=== PATIENT | female | born 1995 | race Caucasian/White ===

== ENCOUNTER 2017-03-17 14:30 | Emergency (ER) | payer MEDICAID ==
[2017-03-17 15:44] LABS: BILIRUBIN,URINE NEGATIVE (NEGATIVE); UA w/ MICROSCOPIC CHARGE YES
[2017-03-17 15:45] LABS: HCG UR QUAL POSITIVE
[2017-03-17 15:57] LABS: UR CULTURE IF IND INDICATED; WBC,URINE 0-3 /HPF (0-5)
--- NOTE | 2017-03-17 16:19 | ED Physician Documentation ---
PD HPI FEMALE - Stated complaint Stated Complaint: CRAMPING/NAUSEA (1 WEEK PREGENANT) - Chief complaint Chief Complaint: Abd Pain - History obtained from History obtained from: Patient - History of Present Illness Timing - onset: How many days ago (3) Timing - duration: Days (3) Timing - details: Gradual onset, Still present Contributing factors: OB-BEET FLUMER History: G (3), P (1), Miscarriage(s) (1) Similar symptoms before: Diagnosis (miscarriage) Recently seen: Not recently seen - Additional information Additional information: 22 y/o female with LMP 4-13-17 has had her symptoms of resolve. She is no longer nauseated and her breast tenderness has resolved. This is similar to what happened to her with a miscarriage previously. She has had a term . She has not had imaging with this . [place] Review of Systems Constitutional: denies: Fever, Chills, Myalgias, Fatigue Eyes: denies: Decreased vision Ears: denies: Ear pain Nose: denies: Congestion Throat: denies: Sore throat Cardiac: denies: Chest pain / pressure, Palpitations Respiratory: denies: Dyspnea, Cough GI: denies: Abdominal Pain, Nausea, Vomiting : denies: Dysuria, Frequency Skin: denies: Rash Musculoskeletal: denies: Neck pain, Back pain, Extremity pain Neurologic: denies: Generalized weakness, Focal weakness, Numbness PD PAST MEDICAL HISTORY - Past Medical History Past Medical History: No - Past Surgical History Past Surgical History: No - Allergies Allergies/Adverse Reactions: Allergies Allergy/AdvReac Type Severity Reaction Status Date / Time No Known Drug Allergies Allergy Verified 03/17/17 14:43 - Social History Does the pt smoke?: No Smoking Status: Never smoker Does the pt drink ETOH?: No Does the pt have substance abuse?: No - Immunizations Immunizations are current?: Yes - POLST Patient has POLST: No PD ED PE NORMAL - Vitals Vital signs reviewed: Yes (normal ) - General General: Alert and oriented X 3, No acute distress, Well developed/nourished - HEENT HEENT: Atraumatic, PERRL - Respiratory Respiratory: No respiratory distress - Abdomen Abdomen: Soft, Non tender - Back Back: No CVA TTP, No spinal TTP - Derm Derm: Normal color, Warm and dry, No rash - Extremities Extremities: No deformity, No edema - Neuro Neuro: Alert and oriented X 3, No motor deficit, No sensory deficit, Normal speech - Psych Psych: Normal mood, Normal affect Results - Vitals Vitals: Vital Signs - 24 hr 03/17/17 03/17/17 14:38 16:21 Temperature 36.9 C Heart Rate 100 89 Respiratory 16 18 Rate Blood Pressure 92/62 95/65 O2 Saturation 100 97 Oxygen O2 Source Room air - Labs Labs: Laboratory Tests 03/17/17 03/17/17 03/17/17 15:35 15:35 16:26 HCG, Quant [id number] Urine Color YELLOW Urine Clarity CLEAR Urine pH 7.0 Ur Specific [place] <=1.005 <=1.005 Urine Protein NEGATIVE Urine Glucose (UA) NEGATIVE Urine Ketones NEGATIVE Urine Occult Blood NEGATIVE Urine Nitrite NEGATIVE Urine Bilirubin NEGATIVE Urine Urobilinogen 0.2 (NORMAL) Ur Leukocyte Esterase TRACE H Urine RBC 0-5 Urine WBC 0-3 Ur Squamous Epith Cells FEW Squamous Urine Bacteria Few Ur Microscopic Review INDICATED Urine Culture Comments INDICATED Urine HCG, Qual POSITIVE Procedures - Bedside sono Bedside sono by EMP: with the use of bedside ultrasound the pelvis is imaged and there is a 6 week gestational sac without a pole present. PD MEDICAL DECISION MAKING - ED course Complexity details: reviewed results, re-evaluated patient, considered differential, d/w patient ED course: 22 y/o female feels her is failing. She may be right and we have drawn her quant today and I have recommended she have a second quant done in 2 days with results to [facility]. Departure - Departure Disposition: 01 Home, Self Care Clinical Impression: Threatened Condition: Stable Instructions: ED Miscarriage Poss Follow-Up: Chelly Santa DO [Provider Admit Priv/Credential] - Comments: Today there is a gestational sac that is consistent with a 6 week without a visible pole. Follow up for another blood test and results will go to Dr. Santa. Today your hcG number is [phone].
[2017-03-17 16:21] VITALS: BP 95/65
== END 2017-03-17 17:32 | disposition home or self-care (01) ==
LOC: ED 14:30
DX: O20.0 Threatened abortion (principal); Z3A.11 11 weeks gestation of pregnancy
CPT/HCPCS: 36415; 81001; 81003; 81025; 84702; 87086; 99283; 99284